=== PATIENT | female | born 1980 | race Caucasian/White ===

== ENCOUNTER 2023-05-25 15:02 | Emergency (ER) | payer BC, OTHER ==
[~2023-05-25] VITALS: Ht 170.2 cm; Wt 108.9 kg
[~2023-05-25 15:02] MED LIST: LEVO112T2 PO
[2023-05-25] MEDS ORDERED: predniSONE 20 MG TABLET ONE (15:26)
[2023-05-25] MEDS ORDERED: FAMOTIDINE/PF INJ 20 MG/2 ML VIAL IV ONE (15:26)
[2023-05-25] MEDS ORDERED: EPINEPHRINE (1:10,000) SYRINGE 1 MG/10 ML DISP.SYRIN ONE (15:26)
[2023-05-25] MEDS ORDERED: FAMOTIDINE (20 MG) 20 MG TABLET ONE (15:28)
[2023-05-25] MEDS ORDERED: FAMOTIDINE (20 MG) 20 MG TABLET PO ONE (15:30)
[2023-05-25] MEDS ORDERED: predniSONE 10 MG TABLET PO ONE (15:30)
[2023-05-25] MEDS ORDERED: EPINEPHRINE (1:1000) 1 MG/ML AMPUL SUBCUT ONE (15:30)
[2023-05-25] MEDS ORDERED: EPIN0.3P3 IM ×2 (16:07→16:21)
[2023-05-25] MEDS ORDERED: FAMO-131 PO ×2 (16:07→16:21)
[2023-05-25] MEDS ORDERED: PRED50TA PO ×2 (16:07→16:21)
[2023-05-25 16:42] VITALS: BP 140/84; TEMP 98.6; O2SAT 98
== END 2023-05-25 16:42 | disposition home or self-care (01) ==
LOC: ER 15:06
DX: R06.02 Shortness of breath (principal); R07.89 Other chest pain; H57.89 Other specified disorders of eye and adnexa; T45.0X5A Adverse effect of antiallergic and antiemetic drugs, initial encounter; E03.9 Hypothyroidism, unspecified; Z79.899 Other long term (current) drug therapy; Y92.89 Other specified places as the place of occurrence of the external cause
CPT/HCPCS: 99283; 96372; J0171; J7512 ×2; J3490